=== PATIENT | female | born 1990 | race Two or more races ===

== ENCOUNTER 2017-12-31 16:59 | Emergency (ER) | payer OTHER ==
[~2017-12-31] VITALS: Ht 162.6 cm; Wt 99.8 kg
[2017-12-31] MEDS ORDERED: LORazepam 1mg tab ORAL ONE (17:15)
[2017-12-31 17:22] VITALS: BP 158/107
[2017-12-31] MEDS ORDERED: LORazepam Inj 2mg/ml 1ml IV ONE (18:30)
[2017-12-31 19:07] VITALS: BP 125/70
[2017-12-31] MEDS ORDERED: Metoprolol Succinate XL 50mg tab ORAL ONE (19:15)
--- NOTE | 2017-12-31 19:20 | Emergency Room Report ---
History of Present Illness General Chief Complaint: General Complaint Source: Patient Present Illness HPI 27 YO Female w. hx of anxiety and HTN presents to the ED c/o "anxiety attack". pt. reports symptoms of nausea, shakiness, and feeling short of breath accompanied with hot flash. Pt. reports her symptoms are consistent with how her symptoms during anxiety attacks in the past. Denies recent travel or immobilization. pt. reports she started noticing symptoms while on the train, and once she got off and got into an uber that is when she had exacerbation which prompted her visit to the ED. pt. is normally rx'd Ativan PO PRN. pt. reports this is a new dx. Pt. reports taking zyrtec and metoprolol at home. however did not take the metoprolol today. Pt. reports feeling like her heart is pumping really fast. denies CP, LOC, AMS, dizziness, Changes in Vision, Sensation, paresthesias, or a sudden severe headache. She Denies pain, claudication, weakness or near syncope. denies personal or familial hx of heart conditions. pt. denies taking control, she also denies . Denies drug use. Allergies: Coded Allergies: No Known Allergies (Unverified , 12/31/17) Patient History Past Medical History: see triage record Past Surgical History: none Pertinent Family History: none Last Menstrual Period: Last month Reviewed Nursing Documentation: PMH: Agreed; PSxH: Agreed Nursing Documentation-PMH Hx Hypertension: Yes Review of Systems All Other Systems: negative except mentioned in HPI Physical Exam Vital Signs Date Time Temp Pulse Resp B/P (MAP) Pulse Ox O2 Delivery O2 Flow Rate FiO2 12/31/17 17:22 133 19 158/107 100 Room Air Sp02 EP Interpretation: reviewed, normal General Appearance: alert, GCS 15, non-toxic, mild distress Head: normocephalic, atraumatic Eyes: bilateral eye normal inspection, bilateral eye PERRL ENT: hearing grossly normal, normal voice Neck: full range of motion Respiratory: chest non-tender, lungs clear, normal breath sounds, no rhonchi, no respiratory distress, no accessory muscle use, no wheezing, speaking full sentences Cardiovascular #1: normal capillary refill, tachycardia - Sinus Gastrointestinal: non tender, soft Musculoskeletal: back normal, gait/station normal, normal range of motion, non- tender Neurologic: alert, oriented x3, responsive, motor strength/tone normal, sensory intact, normal gait, speech normal, grossly normal Psychiatric: judgement/insight normal, anxious Skin: normal color, no rash, warm/dry, well hydrated Medical Decision Making PA Attestation Dr. muñoz is my supervising Physician whom patient management has been discussed with. Diagnostic Impression: Primary Impression: Tachycardia Additional Impression: History of anxiety ER Course 27 YO Female w. hx of anxiety and HTN presents to the ED c/o "anxiety attack". pt. reports symptoms of nausea, shakiness, and feeling short of breath accompanied with hot flash. Pt. reports her symptoms are consistent with how her symptoms during anxiety attacks in the past. Denies recent travel or immobilization. pt. reports she started noticing symptoms while on the train, and once she got off and got into an [employer] that is when she had exacerbation which prompted her visit to the ED. pt. is normally rx'd Ativan PO PRN. pt. reports this is a new dx. Pt. reports taking Zyrtec and metoprolol at home. however did not take the metoprolol today. Pt. reports feeling like her heart is pumping really fast. denies CP, LOC, AMS, dizziness, Changes in Vision, Sensation, paresthesias, or a sudden severe headache. She Denies pain, claudication, weakness or near syncope. denies personal or familial hx of heart conditions. pt. denies taking control, she also denies . Denies drug use. Ddx considered but are not limited to anxiety, MD, PE, asthma, thyroid storm, hyperthyroid, EPS Vital signs: Tachycardic, pt. is afebrile H&PE are most consistent with anxiety attack either secondary to claustrophobia or missed dose of metoprolol. ORDERS: none required at this time, the diagnosis is clinical - pt. saturating at 100% O2, does not have appreciable shortness of breath, although tachycardic pt. does not have any current risk factors for PE, she has a more likely alternative diagnosis thus wells criteria of 1, Does not meet PERC criteria. ED INTERVENTIONS: - - 1mg Ativan PO -2mg Ativan IM -Metoprolol PO -Pt. reports she is feeling much better and requests to be d/c now. d/w pt. importance of taking her medications as prescribed, and encouraged cognitive behavior therapy. I gave this pt. and her visitor strict ED return precautions for any change in condition, worsening or new symptoms. She verbalized her understanding and agreement with this proposed tx plan. DISCHARGE: At this time pt. is stable for d/c to home. Will provide printed patient care instructions, and any necessary prescriptions. Care plan and follow up instructions have been discussed with the patient prior to discharge. EKG Diagnostic Results EP Interpretation: Dr. Salgado Rate: normal - 112 Rhythm: NSR ST Segments: no acute changes ASA given to the pt in ED: No PA Scribe Text This Interpretation was scribed by ARCENIO Bae. Last Vital Signs Date Time Temp Pulse Resp B/P (MAP) Pulse Ox O2 Delivery O2 Flow Rate FiO2 12/31/17 19:07 116 19 125/70 100 Room Air Disposition: HOME, SELF-CARE Condition: Stable Scripts Lorazepam* (ATIVAN*) 1 Mg Tablet 1 MG ORAL PRN, #5 TAB Prov: Tierra Bae 12/31/17 Referrals: OTHER,REFERRING (PCP) Patient Instructions: Generalized Anxiety Disorder Additional Instructions: Take medications as directed. Follow up with a Primary Care Provider in 3-5 days, even if your symptoms have resolved. --Please review list of primary care clinics, if you do not already have a primary care provider Return sooner to ED if new symptoms occur, or current symptoms become worse. Do not drink alcohol, drive, or operate heavy machinery while taking ativan as this may cause drowsiness. - Please note that this Emergency Department Report was dictated using [employer] operator technology software, occasionally this can lead to erroneous entry secondary to interpretation by the dictation equipment. Tierra Bae December 31, 2017 19:20
[2017-12-31 19:59] VITALS: BP 139/84
[2017-12-31] MEDS ORDERED: ATIVAN1 MG ORAL (20:04)
[2017-12-31 20:12] VITALS: BP 139/84
--- NOTE | 2018-01-03 14:44 | Cardiology Report ---
APPROVED REPORT EKG Measurement Heart [id number] Sinus tachycardia Otherwise normal ECG
== END 2017-12-31 20:12 | disposition home or self-care (01) ==
LOC: EDBD 16:59 → EMR 17:30
DX: R00.0 Tachycardia, unspecified (principal); F41.9 Anxiety disorder, unspecified; I10 Essential (primary) hypertension
CPT/HCPCS: 93005; 96374; 96375; 99283